=== PATIENT | female | born 1975 | race Two or more races ===

== ENCOUNTER 2023-07-11 19:07 | Emergency (ER) | payer MEDICAID ==
[~2023-07-11] VITALS: Ht 160 cm; Wt 77.0 kg
[2023-07-11 19:59] LABS: Basophils # (auto) 0 10 ^3/uL (0-0.2); Hemoglobin 8.2 g/dL (12.2-16.2); Mean Corpuscular Volume 63.5 fL (80.0-100.0)
[2023-07-11 20:01] LABS: Basophils % (auto) 0.6 % (0.0-2.0); Eosinophils # (auto) 0.1 10 ^3/uL (0-0.8); Eosinophils % (auto) 1.7 % (0.0-7.0); Hematocrit 28.1 % (36.0-46.0); Lymphocytes # (auto) 1.6 10 ^3/uL (0.4-5.4); Lymphocytes % (auto) 24.1 % (10.0-50.0); Mean Corpuscular Hemoglobin 18.6 pg (28.0-32.0); Mean Corpuscular Hgb Conc. 29.3 g/dL (32.0-36.0); Monocytes # (auto) 0.6 10 ^3/uL (0-1.3); Monocytes % (auto) 9.3 % (0.0-12.0); Neutrophils # (auto) 4.3 10 ^3/uL (1.6-8.6); Neutrophils % (auto) 64.3 % (37.0-80.0); Red Blood Cells 4.43 10^6/uL (4.0-5.20); Red Cell Distribution Width 18.1 % (11.8-14.3); White Blood Cell 6.7 10^3/uL (4.4-10.8)
[2023-07-11 20:14] LABS: Alanine Aminotransferase 26 U/L (7-40); Albumin 4.2 g/dL (3.2-4.8); Alkaline Phosphatase 94 U/L (46-116); Anion Gap 7 (5-15); Aspartate Aminotransferase 19 U/L (13-40); BUN/Creatinine Ratio 14.8 (10.0-20.0); Blood Urea Nitrogen 9 mg/dL (9-23); Calcium 9.1 mg/dL (8.7-10.4); Carbon Dioxide 24 mmol/L (20-30); Chloride 108 mmol/L (98-107); Glucose 118 mg/dL (74-106); Lipase 41 U/L (12-53); Potassium 3.6 mmol/L (3.5-5.1); Sodium 139 mmol/L (136-145)
[2023-07-11 20:15] LABS: Bilirubin, Total 1.5 mg/dL (0.2-1.0)
[2023-07-11 20:39] LABS: Urine Bacteria None Seen /hpf (None Seen)
[2023-07-11 21:37] LABS: Urine Blood 1+ /uL (Negative); Urine Clarity Clear (Clear); Urine Color Colorless (Yellow); Urine Protein, UAD Negative (Negative); Urine Urobilinogen Normal (Negative); Urine WBC 8 /hpf (0 - 5); Urine pH 5.5 (5.0-9.0)
[2023-07-12] MEDS ORDERED: DICY10CA PO (01:01)
[2023-07-12] MEDS: DICYCLOMINE HCL (10MG/ML) 2 ML AMPULE IM ONE (01:09)
[2023-07-12 01:10] VITALS: BP 138/59; PULSE 64; RESP 16; TEMP 97.7; O2SAT 99
== END 2023-07-12 01:19 | disposition home or self-care (01) ==
LOC: ER 19:07
DX: R10.13 Epigastric pain (principal); E11.9 Type 2 diabetes mellitus without complications; E78.5 Hyperlipidemia, unspecified; Z98.890 Other specified postprocedural states
CPT/HCPCS: 36415; 80053; 81001; 83690; 85025; 96372; 99283; J0500